=== PATIENT | male | born 1975 | race Caucasian/White ===

== ENCOUNTER 2017-03-23 15:50 | Emergency (ER) | payer SELFPAY ==
[~2017-03-23] VITALS: Ht 167.6 cm; Wt 68.0 kg
[2017-03-23 19:09] LABS: AMPHETAMINE QUAL UR POSITIVE (NEG <=1000)
[2017-03-23 21:10] LABS: BASOPHIL % 0.4 % (0-2); PLATELET COUNT 235 x10^3mcL (130-400); RED CELL DISTRIBUTION WIDTH 13.8 % (11.5-14.5)
[2017-03-23 21:20] LABS: CALCIUM 8.8 mg/dL (8.5-10.1); CARBON DIOXIDE 32.2 mmol/L (21-32); CHLORIDE SERUM 101 mmol/L (98-107); GFR1 > 60 mL/min; GLUCOSE SERUM 97 mg/dL (74-106); POTASSIUM SERUM 4.1 mmol/L (3.5-5.1); SODIUM SERUM 140 mmol/L (136-145)
[2017-03-23 21:25] LABS: ALBUMIN 3.8 g/dL (3.4-5.0); ALKALINE PHOSPHATASE 70 U/L (46-116); ALT/SGPT 55 U/L (16-63); AST/SGOT 40 U/L (15-37); BILIRUBIN TOTAL 1.4 mg/dL (0.20-1.00); LIPASE 70 IU/L (73-393); TOTAL PROTEIN, SERUM 7.3 g/dL (6.4-8.2)
[2017-03-23 21:26] LABS: AMYLASE 22 U/L (25-115)
[2017-03-23 22:46] VITALS: BP 134/80
== END 2017-03-23 22:46 | disposition home or self-care (01) ==
LOC: ED 15:50
PROVIDERS: Emergency Medicine
DX: R10.31 Right lower quadrant pain (principal); K62.89 Other specified diseases of anus and rectum; F15.10 Other stimulant abuse, uncomplicated; Z79.899 Other long term (current) drug therapy
CPT/HCPCS: 80307